=== PATIENT | male | born 2000 | race Caucasian/White ===

== ENCOUNTER 2023-12-23 10:42 | Emergency (ER) | payer OTHER ==
[~2023-12-23] VITALS: Ht 167.6 cm; Wt 61.2 kg
[2023-12-23 11:42] LABS: BASOPHILS % (AUTO) 0.6 % (0.0-2.0); EOSINOPHILS # (AUTO) 0.2 K/uL (0.0-0.7); EOSINOPHILS % (AUTO) 2.1 % (0.0-6.0); HEMATOCRIT 52 % (39-51); HEMOGLOBIN 17.6 g/dL (13.5-17.5); LYMPHOCYTES # (AUTO) 1.5 K/uL (0.8-4.8); LYMPHOCYTES % (AUTO) 20.2 % (20.0-44.0); MEAN CORPUSCULAR HEMOGLOBIN 30 PG (26.0-33.0); MEAN CORPUSCULAR HGB CONC 34 g/dl (31.0-36.0); MEAN CORPUSCULAR VOLUME 89 fL (80-96); MONOCYTES # (AUTO) 0.5 K/uL (0.1-1.30); MONOCYTES % (AUTO) 6.6 % (2.0-12.0); NEUTROPHILS # (AUTO) 5.4 K/uL (1.8-8.9); NEUTROPHILS % (AUTO) 70.5 % (43.0-81.0); PLATELET COUNT (AUTO) 169 K/uL (150-450); RED BLOOD CELL COUNT(AUTO) 5.84 MIL/uL (4.5-6.0); RED CELL DISTRIBUTION WIDTH 12.8 % (11.5-15.0); WHITE BLOOD COUNT (AUTO) 7.6 K/uL (4.3-11.0)
[2023-12-23 11:58] LABS: PARTIAL THROMBOPLASTIN TIME 22.1 SEC (24.3-34.3); PROTHROMBIN TIME 10.3 SECS (9.2-11.1)
[2023-12-23 11:59] LABS: CALCIUM, SERUM 9.6 mg/dL (8.5-10.1)
[2023-12-23] MEDS ORDERED: TDAP [DIPH/PERTUSSIS/TET] 0.5 ML VIAL IM ONE (12:02)
[2023-12-23] MEDS ORDERED: BACI/NEOM/POLY B OINT PKT 1 UDPKT PACKET ONE (12:02)
[2023-12-23] MEDS ORDERED: ACETAMINOPHEN 325 MG TABLET ONE (12:02)
[2023-12-23] MEDS: BACI/NEOM/POLY B OINT PKT 1 UDPKT PACKET TP ONE (12:08)
[2023-12-23] MEDS: ACETAMINOPHEN 325 MG TABLET PO ONE (12:08)
[2023-12-23 12:10] LABS: ALBUMIN 4.9 g/dL (3.4-5.0); BILIRUBIN,DIRECT 0.2 mg/dL (0.0-0.2); BILIRUBIN,TOTAL 0.7 mg/dL (0.2-1.0); TOTAL PROTEIN, SERUM 8.9 g/dL (6.4-8.2)
[2023-12-23] MEDS: TDAP [DIPH/PERTUSSIS/TET] 0.5 ML VIAL IM ONE (12:11)
[2023-12-23] MEDS ORDERED: IBUP-1955 PO (12:35)
[2023-12-23] MEDS ORDERED: AMOX-430 PO (12:35)
[2023-12-23 12:51] VITALS: BP 145/87; TEMP 98.2; O2SAT 96
== END 2023-12-23 12:51 | disposition home or self-care (01) ==
LOC: ER 10:51
DX: S02.2XXA Fracture of nasal bones, initial encounter for closed fracture (principal); S00.511A Abrasion of lip, initial encounter; S09.90XA Unspecified injury of head, initial encounter; R04.0 Epistaxis; R94.31 Abnormal electrocardiogram [ECG] [EKG]; V49.9XXA Car occupant (driver) (passenger) injured in unspecified traffic accident, initial encounter; Y93.89 Activity, other specified; Y92.89 Other specified places as the place of occurrence of the external cause; Y99.8 Other external cause status
CPT/HCPCS: 99285; 70450; 71045; 90471; 93005; 90715; 70486; 85025; 80048; 80076; 36415; 85730; A6403